=== PATIENT | male | born 1945 | race Caucasian/White ===

== ENCOUNTER 2018-03-21 07:03 | Outpatient (CLI) | payer MEDICARE, OTHER ==
[2018-03-21] MEDS ORDERED: ISOVUE-370 76%-LOCM 1 ML ONE (14:48)
== END 2018-03-21 07:04 | disposition home or self-care (01) ==
LOC: BICCT 07:03
PROVIDERS: ATTEND Otolaryngology Otolaryngic Allergy
DX: R22.1 Localized swelling, mass and lump, neck (principal); J38.01 Paralysis of vocal cords and larynx, unilateral; C96.9 Malignant neoplasm of lymphoid, hematopoietic and related tissue, unspecified; C79.89 Secondary malignant neoplasm of other specified sites; E04.2 Nontoxic multinodular goiter; E27.9 Disorder of adrenal gland, unspecified
CPT/HCPCS: 70491; 71260; 82565

== ENCOUNTER 2019-02-19 00:53 | Inpatient (IN) | payer MEDICARE, OTHER ==
[2019-02-19 02:00] LABS: ALT (SGPT) 23 U/L (8-55); AST (SGOT) 24 U/L (5-34); Albumin 3.5 g/dL (3.4-4.8); Alkaline Phosphatase 81 U/L (40-150); Anion Gap 16 mmol/L (10-20); BUN (Urea Nitrogen) 56 mg/dL (8.4-25.7); Bilirubin, Total 0.3 mg/dL (0.2-1.2); Calc. Creatinine Clearance 0 mL/min (70-130); Calcium 7.4 mg/dL (7.8-10.44); Carbon Dioxide 19 mmol/L (23-31); Chloride 108 mmol/L (98-107); Estimated GFR-MDRD 25; Globulin 2.5 g/dL (2.4-3.5); Glucose 304 mg/dL (83-110); Potassium 3.6 mmol/L (3.5-5.1); Sodium 139 mmol/L (136-145)
[2019-02-19 02:11] LABS: CKMB 3.2 ng/mL (0-6.6)
[2019-02-19 02:28] LABS: Bilirubin Negative (Negative); Blood, Urine Large (Negative); Clarity CLOUDY (Clear); Glucose, Urine (Dipstick) Negative (Negative); Leukocyte Moderate (Negative); Nitrite Positive (Negative); Protein, Urine (Dipstick) 30 mg/dL (Neg-Trace); Specific Gravity, Urine 1.018 (1.002-1.036); Urobilinogen 0.2 mg/dL (0.2-1.0)
[2019-02-19 02:29] LABS: Band 18 % (5-11); Hemoglobin 9.3 g/dL (14.0-18.0); Lymphocytes 3 % (21-51); MDiff Complete? YES; Mean Corpuscular HGB CONC 32.5 g/dL (32.0-36.0); Mean Corpuscular Hemoglobin 28.2 pg (27.0-31.0); Mean Corpuscular Volume 86.7 fL (78.0-98.0); Mean Platelet Volume 7.3 fL (7.4-10.4); Monocytes 7 % (0-10); Neutrophil 72 % (42-75); Platelet Count 198 thou/uL (130-400); RBC Distribution Width 14.1 % (11.5-14.5); White Blood Cell (WBC) Count 18.9 thou/uL (4.8-10.8)
[2019-02-19 02:30] LABS: Bacteria/HPF 4+ HPF (None Seen); Hyaline Casts/LPF 0-3 HYALINE CAST LPF (0-3 Hyaline); RBC/HPF 21-50 HPF (0-3); Squamous Epithelial None Seen HPF (0-3)
[2019-02-19] MEDS ORDERED: cefTRIAXone\\ROCEPHIN 2 GM VIAL ONE (03:07)
[2019-02-19 05:30] LABS: Troponin I 0.323 ng/mL (< 0.028)
--- NOTE | 2019-02-19 07:31 | RAD ---
EXAM: Single view of the chest HISTORY: Fever COMPARISON: 07/21/2010 FINDINGS: Single view of the chest shows an enlarged but stable cardiomediastinal silhouette. Athero sclerotic calcifications are seen in the aorta. There is no evidence of consolidation, mass, or pleural effusion. Degenerative changes are seen in the spine. IMPRESSION: Cardiomegaly without evidence of acute cardiopulmonary disease
--- NOTE | 2019-02-19 07:38 | CT ---
PRELIMINARY REPORT/[facility]/EMERGENCY AFTER HOURS PROCEDURE: EXAM: CT Abdomen and Pelvis Without Contrast EXAM DATE/TIME: 02/19/2019 1:47 AM CLINICAL HISTORY: 73 years old, male; Patient HX: 73 yo m presents to ED with C/O fever. reports PT has had an int ermittent fever measured at 100.1 over the past few days, with associated SOB, chills, nausea, and vomiting that started tonight. also reports PT has been fatigued for the past week. reports PT currently has thyroid cancer and is on chemotherapy. PT denies diarrhea, denies dysuria, denies cough. PT reports his blood sugar was measured at 265. TECHNIQUE: Imaging protocol: Axial computed tomography images of the abdomen and pelvis without contrast. COMPARISON: No relevant prior studies available. FINDINGS: Lungs: There is subpleural atelectasis of the dependent portions of the lungs. Liver: There is a focal right liver lobe hypodensity that cannot be further characterized on the curr ent examination. Gallbladder and bile ducts: There has been a cholecystectomy. Pancreas: The pancreas appears normal. No ductal dilatation. Spleen: The spleen is normal. Adrenals: There is a focal hypodense mass in the right adrenal gland, consistent in appearance with a benign adrenal adenoma. There is a focal hypodense mass in the left adrenal gland, consistent in appearance and density with a benign adrenal adenoma. Kidneys and ureters: There is an indeterminate exophytic RIGHT renal cyst. There are multiple simple left renal cysts. There is a 4 x 3 x 3 mm calcification at the RIGHT UVJ with no RIGHT hydroureteronephrosis. Stomach and bowel: The stomach is normal. There is moderate colonic constipation. Moderate diverticul osis is present in the sigmoid and descending colon. Appendix: A normal appendix is identified. Intraperitoneal space: Normal. No free air. No significant fluid collection. Vasculature: There is a spontaneous splenorenal shunt. An inferior vena cava filter lies in appropriate position. The vasculature demonstrates diffuse moderate atherosclerotic calcification. Lymph nodes: Normal. No enlarged lymph nodes. Bladder: The bladder is decompressed but otherwise normal. Reproductive: The prostate gland demonstrates mild nonspecific enlargement. The seminal vesicles are normal. Bones/joints: There is multilevel lumbar spine surgical fixation with transpedicular screws, stabilization rods, disc spacers and spinous process plates. Soft tissues: Unremarkable. IMPRESSION: There is a 4 x 3 x 3 mm calcification at the RIGHT UVJ with no RIGHT hydroureteronephrosis. Thank you for allowing us to participate in the care of your patient. Dictated and Authenticated by: Josesito Burks MD 02/19/2019 3:15 AM Central Time ([place] & [place]) FINAL REPORT: EXAM: ABDOMEN AND PELVIC CT SCAN WITH IV CONTRAST: Emergency after exam 1:48 AM 02/19/2019. Multiple bilateral nonobstructing renal calculi with a nonobstructing distal right ureteral calculus. Numerous other findings as above. Bilateral adrenal nodules. Bilateral renal indeterminate masses. Extensive postop changes of the lower lumbar spine. Bilateral fat-containing hernias. Multi ple colonic diverticulosis without diverticulitis. This report is in agreement with a preliminary report. Transcribed Date/Time: 02/19/2019 9:25 AM
[2019-02-19 07:44] LABS: Troponin I 0.238 ng/mL (< 0.028)
[2019-02-19] MEDS ORDERED: Acetaminophen 325 MG TAB PO PRN (09:06)
[2019-02-19] MEDS ORDERED: Senokot S 8.6-50 MG TAB PO PRN (09:06)
[2019-02-19] MEDS ORDERED: Dextrose 5% in Water 1,000 ML IV PRN (09:51)
[2019-02-19] MEDS ORDERED: Dextrose 50% Abboject 50 ML SYRINGE SLOW IVP PRN (09:51)
[2019-02-19] MEDS ORDERED: HumaLOG 300 UNITS/3 ML VIAL SC PRN (09:51)
[2019-02-19] MEDS ORDERED: cloNIDine 0.1 MG TAB PO PRN (09:53)
[2019-02-19] MEDS ORDERED: Nitroglycerin 0.4 MG TAB (25 Tab Bottle) SL PRN (09:53)
[2019-02-19] MEDS ORDERED: Benzonatate 100 MG CAP PO PRN (09:53)
[2019-02-19] MEDS ORDERED: Bisacodyl 5 MG TAB PO PRN (09:53)
[2019-02-19] MEDS ORDERED: Sodium Chloride 0.65% Nasal 44 ML BOT EA NARE PRN (09:53)
[2019-02-19] MEDS ORDERED: hydrALAZINE 20 MG/ML VIAL SLOW IVP PRN (09:53)
[2019-02-19] MEDS ORDERED: Ondansetron PF 4 MG/2 ML Vial IVP PRN (09:53)
--- NOTE | 2019-02-19 10:30 | CON ---
DATE OF CONSULTATION: 02/19/2019 HISTORY OF PRESENT ILLNESS: This is a 73-year-old white male, who I have seen for since 2007 with recurrent bilateral urinary tract stones. I last saw him towards the end of December. At that time, he had pain for 2 weeks on the left side, and actually, had a CT done in [place], it showed some left hydronephrosis, also showed some right stones. He is to see me in a couple of days with a noncontrast CT. A urine culture at that point of late December was negative. He comes in now with a 4-day history of subjective fever, chills, worse yesterday with shakes and rigors, not feeling well, got weak yesterday, could walk. No burning. No flank pain. Did throw up last night, but otherwise was not having nausea or vomiting. He came into the emergency room, he had a urinalysis that was consistent with infection, it showed 21 to 50 red cells, greater than 50 white cells, 4+ bacteria. His creatinine was 2.56, and I am not sure what his baseline is. White count was 18.9. His hemoglobin was 9.3. He is on oral chemotherapeutic agent for thyroid cancer. He sees an oncologist at [facility]. He did have a CAT scan done that showed some bilateral cysts and bilateral stones and a very small right distal ureterovesical junction stone without any associated hydronephrosis. His vital signs have been stable here. He is receiving IV fluids. He has been n.p.o. PAST MEDICAL HISTORY: Includes stones, history of elevated cholesterol, history of diverticulitis. He has had knee surgery, ESWLs, and a cholecystectomy. He also has diabetes. ALLERGIES: HE DOES NOT HAVE ANY. MEDICATIONS: He has received vancomycin and piperacillin and tazobactam in the emergency center. He is being given some insulin in the emergency center. He has been admitted by the hospitalist system. I have reviewed his CAT scan. I have contacted the ER. I have talked with the patient, and we are going to set him up for emergent cystoscopy and stent placement because of infection associated with the ureteral stone and his elevated creatinine. Job ID: [id number]
[2019-02-19] MEDS ORDERED: PROPOFOL 200 MG/20 ML VIAL ONE (10:53)
[2019-02-19] MEDS ORDERED: Succinylcholine Chloride 20 MG/ML 10 ml SYRINGE FS ONE (10:53)
[2019-02-19] MEDS ORDERED: Lidocaine 1% PF 5 ML VIAL ONE (10:53)
[2019-02-19] MEDS ORDERED: Ondansetron PF 4 MG/2 ML Vial ONE (10:53)
[2019-02-19] MEDS ORDERED: ePHEDrine 50 MG/ML VIAL ONE (10:53)
[2019-02-19] MEDS ORDERED: PHENYLEPHRINE-NS 100 MCG/ML 10 ML SYRINGE ONE (10:53)
[2019-02-19] MEDS ORDERED: Fentanyl 100 MCG/2 ML VIAL ONE (11:11)
[2019-02-19] MEDS ORDERED: Iothalamate Meglumine 60% 50 ML VIAL FS ONE (11:14)
--- NOTE | 2019-02-19 11:31 | HP ---
PRIMARY CARE PHYSICIAN: Dr. Stephanie Stevens, in [place], [place]. PRIMARY UROLOGIST: Dr. Mccormick. PRIMARY ONCOLOGIST: [facility]. CHIEF COMPLAINT: Fever, chills, nausea, weakness, and confusion. HISTORY OF PRESENT ILLNESS: Mr. Donovan is a pleasant 73-year-old male with past medical history of thyroid cancer, status post surgery in August 2018, on chemotherapy medications, as well as history of diabetes, dyslipidemia, hypertension, and renal stones, who presented to the emergency room with above-mentioned complaints. History is mainly obtained by the patient himself and supplemented by his present at the bedside. Electronic medical records have been reviewed. According to Mr. Donovan, he has been feeling fairly well up until 2 or 3 days ago. He started to have low-grade fever 3 days ago on a daily basis in the evening. Tylenol helped the fever most of the days except for yesterday, when his low-grade fever did not go away. He feels more and more weak and had nausea associated with urinary urgency. He had generalized weakness, malaise, and became confused last evening. He has also been having poor appetite. Fever and chills were not associated with any diarrhea, vomiting, or abdominal pain. He denied any chest pain, shortness of breath, orthopnea, or PND. He denies any blood in his urine or stools. He denies any sick contacts. In regulation to his thyroid cancer: He reports that he takes 2 oral chemotherapy medications and Synthroid. He follows up at [facility] and had a PET scan in September, which showed that he is in remission. Upon presentation to the ER, his blood pressure was 109/62, pulse of 104, and temperature of 98.2. His initial workup included a CT scan of abdomen and pelvis, which showed right UVJ calculus without any hydroureteronephrosis. His blood work showed acute renal insufficiency with a creatinine of 2.56, and he had leukocytosis with WBCs of 18.9 with 18% bands. He also had elevated troponin at 0.286, which went up to 0.32, and then trended down to 0.238. His urinalysis had multiple bacteria, rbc, leukocyte esterase, nitrite, and wbc's. ER COURSE: He was treated with normal saline, Rocephin, and vancomycin in the ER, and Urology was consulted. Dr. Mccormick was consulted and he recommended keeping him n.p.o. for a possible ureteral stent versus stone retrieval. At the time of my evaluation, the patient is in Day Stay, awaiting procedure by Dr. Sol, who is covering for Dr. Mccormick. PAST MEDICAL HISTORY: 1. Thyroid cancer, status post surgery, on oral chemotherapy medication. 2. Diabetes mellitus type 2. 3. Prostate enlargement. 4. Dyslipidemia. 5. History of diverticulitis. 6. TIA in August 2018. 7. Kidney stones in the past. PAST SURGICAL HISTORY: 1. Thyroid tumor removal on the left neck and lymph node removal. 2. Left knee replacement. 3. Back surgery with screws. 4. Bilateral cataract surgery. 5. Left hand surgery. 6. Bilateral elbow surgery. PSYCHIATRIC HISTORY: No anxiety. No depression. SOCIAL HISTORY: He is and lives with his . No history of drug, tobacco, or alcohol abuse. FAMILY HISTORY: He denies any family history of cancers, diabetes, hypertension, coronary artery disease, or stroke. ALLERGIES: INCLUDE ADHESIVE TAPE. HOME MEDICATIONS: As listed in the ER records; 1. Aspirin 325 mg daily. 2. Synthroid 200 mcg daily. 3. Tamsulosin 0.4 mg b.i.d. 4. Lipitor 40 mg daily. 5. Potassium chloride 10 mEq daily. 6. Aldactone 25 mg daily. 7. Famotidine 20 mg daily. 8. Humalog sliding scale. 9. Sertraline 50 mg daily. 10. Lorazepam 0.5 mg b.i.d. 11. Fentanyl patch 100 mcg every 72 hours. CODE STATUS: Full code discussed with the patient and in detail. REVIEW OF SYSTEMS: A 14-point review of systems is done and is negative except for those mentioned in the history and physical. LABORATORY DATA: CBC shows WBCs 18.9 with 18% bands. Hemoglobin is 9.3 with baseline unknown. It is normochromic normocytic in nature. Serum chemistries show bicarb 19, BUN 56, and creatinine 2.56 with GFR estimated at 25. Lactic acid is normal. Troponin 0.286, then repeat troponin 0.323, then 0.238. Urinalysis as per HPI suggest UTI. Chest x-ray by my review has no evidence to suggest pleural effusion, edema, or infiltrate. CT scan of the abdomen and pelvis done in the emergency room without contrast shows 4 x 3 x 3 mm calcification of the right UVJ with no right hydroureteronephrosis. No other acute changes were noticed. A 12-lead EKG by my review shows normal sinus rhythm without any acute ST or T-wave changes. PHYSICAL EXAMINATION: VITAL SIGNS: Upon presentation, blood pressure 109/62, pulse of 104, respirations 18, saturating 95% on room air, and temperature 98.2. GENERAL: He is seen and examined in Day Stay. He is feeling better and is awake, alert, and oriented x3, appears in good spirit and is in no acute distress. HEENT: Mucous membrane is slightly dry. No oropharyngeal exudate or erythema. Head is normocephalic and atraumatic. Pupils are equal and reactive to light and accommodation. Extraocular movement intact. NECK: Supple without any lymphadenopathy, JVD, or bruit. CHEST: Clear to auscultation without any wheezing, rales, or rhonchi. HEART: Rate and rhythm are regular without any murmurs, rubs, or gallops. ABDOMEN: Soft, nontender, and nondistended. Positive bowel sounds. EXTREMITIES: Free of any cyanosis, clubbing, or edema. NEUROLOGICAL: Nonfocal. SKIN: Free of any rashes or bruises. Feels warm and dry to touch. PSYCHIATRIC: Normal affect. IMPRESSION AND PLAN: 1. Sepsis. This was most likely secondary to urinary tract infection, which in turn is due to nephrolithiasis and history of benign prostatic hyperplasia. Because of the immunocompromised status, we will put him on broad spectrum IV antibiotics and consult Infectious Disease, Dr. Cruz, as well. He will be treated with normal saline, IV Zosyn, and IV vancomycin. Blood and urine cultures have been collected and we will follow the results. He is clinically already feeling much better. He will be admitted to telemetry unit. 2. Urinary tract infection. Once again, continue empiric antibiotic and follow the final results of the urine culture. We will avoid any Cunningham catheterization. This is most likely secondary to nephrolithiasis. He is undergoing an emergent cystoscopy with hopefully either stone removal or stent placement by Urology. We appreciate the input. 3. Acute renal insufficiency. This is secondary to #1 and #2 as well as due to nephrolithiasis. Emergent cystoscopy with stone removal has been underway. We will avoid any nephrotoxic medications and start him on normal saline and monitor his kidney function on a daily basis. It is unclear if he has any history of chronic kidney disease, but he denies that. 4. Type 2 myocardial infarction. He has elevated troponin, most likely secondary to ongoing sepsis. It has already started to trend down. We will repeat it in few hours. We will obtain a transthoracic echocardiogram to rule out inherent cardiac issues and also to rule out any cardiac infection such as endocarditis in the phase of sepsis. 5. Nephrolithiasis as #1, #2, and #3. He is to undergo emergent procedure by Urology for the same. At this time, there is no hydroureteronephrosis. 6. Uncontrolled diabetes mellitus. We will start him on insulin sliding scale and carb controlled diet. We will restart his home medications once he is cleared to take oral medications. 7. Hypertension, currently on the lower side. Hold his antihypertensives and use p.r.n. only. Restart medications as his blood pressure tolerates. 8. Dyslipidemia. We will restart his home medications once he is cleared to take oral medications. 9. History of thyroid cancer, status post removal. We will restart his oral chemotherapeutic medications while in the hospital. He will continue to follow up with his oncologist at [facility]. She is on vacation today, but we will give her a call tomorrow. I have encouraged the patient's to leave a message with oncologist nurse today. 10. Deep venous thrombosis and gastrointestinal prophylaxis and symptomatic and supportive care. 11. Code status, full code discussed with the patient and his . 12. Generalized weakness, this is secondary to sepsis. We will have OT/PT evaluated the patient. He most likely will benefit from home health on discharge. DISPOSITION: Mr. Donovan is currently being admitted to the hospital with sepsis secondary to urinary tract infection, nephrolithiasis, and renal failure. Estimated length of stay at this time is at least 3 to 4 midnights. Further management will depend upon his clinical course. Job ID: [id number]
[2019-02-19] MEDS ORDERED: Ondansetron HCl/PF 4 MG/2 ML Vial IVP PRN (11:44)
[2019-02-19] MEDS ORDERED: PACU-Morphine 4MG/ML VIAL SLOW IVP PRN (11:44)
[2019-02-19] MEDS ORDERED: Meperidine HCl/PF 25 MG/ML VIAL SLOW IVP PRN (11:44)
[2019-02-19] MEDS ORDERED: HYDROmorphone 2 MG/ML VIAL SLOW IVP PRN (11:44)
[2019-02-19] MEDS ORDERED: Promethazine HCl 25 MG/ML VIAL SLOW IVP PRN (11:44)
[2019-02-19] MEDS ORDERED: Promethazine HCl 25 MG/ML VIAL IM PRN (11:44)
[2019-02-19] MEDS ORDERED: Morphine Sulfate 2 MG/ML SYRINGE SLOW IVP PRN (11:44)
--- NOTE | 2019-02-19 12:13 | RAD ---
EXAM: XR IVP Retrograde PROVIDED CLINICAL HISTORY: Ureteral calculus. Stent placement. COMPARISON: CT abdomen and pelvis on 02/19/2019. FINDINGS/IMPRESSION: Credit And Collections Analyst image demonstrates extensive postsurgical changes of the lumbar spine and lumbosacral junction. There is a neural stimulator device overlying the lumbar spine and left mid abdomen. IVC filter is partially imaged. Subsequent imaging demonstrates catheter and guidewire within the right ureter with injection of contrast demonstrating no evidence of hydronephrosis or definite persistent filling defect within the right renal collecting system. Final image demonstrates a double pigtail right uret eral stent in place. Correlation with intraoperative findings is recommended.
--- NOTE | 2019-02-19 15:36 | OP ---
DATE OF PROCEDURE: 02/19/2019 PREOPERATIVE DIAGNOSES: Right ureterovesical stone and sepsis. POSTOPERATIVE DIAGNOSIS: Right ureterovesical stone and sepsis plus bladder stone. PROCEDURE PERFORMED: Cystoscopy, right retrograde, right stent, and removal of bladder stone. SPECIMENS REMOVED: Bladder stones. ESTIMATED BLOOD LOSS: Minimal. DRAINS: 6 x 22 double-J stent up the right ureter. FINDINGS: There was still left distal ureteral obstruction, could not see the stone on a career development manager film, but could not get a guidewire across it, used the angled tip Glidewire. He had minimal hydronephrosis, however. His urine was cloudy in the bladder. The urine draining from the upper collecting system on the right side was also cloudy. There was no primo pus. OPERATIVE INDICATIONS: This is a 73-year-old white male, who has had a 4-day history of fevers and chills. No significant pain, but started to get confused last night and his brought him in because of this, he was found to have infected appearing urine. CT with a right distal ureteral stone, not much of hydro and elevated white count. He is coming now for placement of a stent because of the association of the infection and sepsis with ureteral stone. DESCRIPTION OF PROCEDURE: Obtained written and verbal consent from the patient. He was taken to the operating suite. He was placed in a supine position on the treatment table. PlexiPulses were placed on his lower extremities and turned on. He was given a general anesthetic and oral intubation. He was placed in the dorsal lithotomy position, sterilely prepped and draped. Fluoroscopy was placed over him for imaging. Cystoscopy was done with a 22-Divehi sheath. This was well lubricated, passed under direct vision through the male urethra and into the urinary bladder. The bladder was filled and emptied a number of times, it was very cloudy. We identified a bladder stone that was grasped with a grasping forceps. It was a very soft stone. It was crushed, and the larger pieces were taken out. There was one remaining piece that he would probably able to urinate out. The stone was probably 0.5 cm in size. We located the right ureteral orifice and a guidewire would not go up, so we brought in a [place] catheter and we placed an angle-tipped Glidewire, through that we were able to get this by the right ureter to go up the renal pelvis. The Springfield catheter then followed up. We injected about 8 to 10 mL of contrast to fill the collecting system. The ureter did not appear dilated at all, although it was slightly tortuous. Upper collecting system was at most possibly slightly dilated, so there was not a significant amount of hydronephrosis at all. The guidewire was replaced. The open-ended catheter was removed. His ureter was not very long, so we were able to use a 6 x 22 Polaris double-J stent, which was placed over the guidewire, pushed up in place with the pusher to its proximal end coiled in the renal pelvis when the guidewire was removed. Stent appeared to be draining well at the end of the case. The bladder was drained. The instruments were removed. He was taken out of the dorsal lithotomy position, awakened and extubated, taken by lillieer to recovery room. Job ID: [id number]
[2019-02-19 17:16] LABS: CKMB 4.9 ng/mL (0-6.6)
[2019-02-19] MEDS ORDERED: Piperacillin/Tazobactam 3.375 GM VIAL ONE (17:30)
[2019-02-19] MEDS ORDERED: Sodium Chloride 0.9% 100 ML ONE (17:30)
[2019-02-19] MEDS: Sodium Chloride 0.9% 1,000 ML IV SCH ×2 (20:26→21:40)
[2019-02-19] MEDS: Heparin 5,000 UNITS/ML VIAL SC SCH ×2 (20:26→21:42)
[2019-02-19] MEDS: Piperacillin/Tazobactam 3.375 GM in Sodium Chloride 0.9% 100 ML IVPB SCH (20:26)
[2019-02-19] MEDS: Famotidine/PF 20 mg/2ml Vial SLOW IVP SCH ×2 (20:27→21:41)
[2019-02-20] MEDS: Piperacillin/Tazobactam 3.375 GM in Sodium Chloride 0.9% 100 ML IVPB SCH ×4 (00:27→17:57)
[2019-02-20 02:10] VITALS: BMI 36.6
[2019-02-20 05:29] LABS: #Eosinphils 0.2 thou/uL (0.0-0.7); #Monocytes 0.8 thou/uL (0.11-0.59); #Neutrophils 11.9 thou/uL (1.40-6.50); %Basophils 0.1 % (0.0-1.0); %Eosinophils 1.7 % (0.0-10.0); %Lymphocytes 7.2 % (21.0-51.0); %Monocytes 5.4 % (0.0-10.0); %Neutrophils 85.7 % (42.0-75.0); Hemoglobin 8.3 g/dL (14.0-18.0); Mean Corpuscular HGB CONC 32.4 g/dL (32.0-36.0); Mean Corpuscular Hemoglobin 28.4 pg (27.0-31.0); Mean Corpuscular Volume 87.5 fL (78.0-98.0); Mean Platelet Volume 7.3 fL (7.4-10.4); Platelet Count 181 thou/uL (130-400); RBC Distribution Width 14.3 % (11.5-14.5); Red Blood Cell (RBC) Count 2.92 mill/uL (4.70-6.10); White Blood Cell (WBC) Count 13.9 thou/uL (4.8-10.8)
[2019-02-20 05:52] LABS: Anion Gap 12 mmol/L (10-20); BUN (Urea Nitrogen) 42 mg/dL (8.4-25.7); Calc. Creatinine Clearance 49 mL/min (70-130); Calcium 6.9 mg/dL (7.8-10.44); Carbon Dioxide 19 mmol/L (23-31); Chloride 115 mmol/L (98-107); Estimated GFR-MDRD 30; Glucose 138 mg/dL (83-110); Potassium 3.6 mmol/L (3.5-5.1); Sodium 142 mmol/L (136-145)
--- NOTE | 2019-02-20 08:10 | PDOC.PN ---
- Subjective Encounter Start Date: 02/20/19 Encounter Start Time: 07:45 Mr. Donovan is a pleasant 73 year old man with a history of Thyroid Cancer for which he is currently taking - Objective Resuscitation Status - Order Detail: 02/19/19 09:06 Resuscitation Status Routine Resuscitation Status: FULL: Full Resuscitation Vital Signs & Weight: Vital Signs (12 hours) Temp Pulse Resp BP Pulse Ox 02/20/19 07:58 98.2 F 80 20 126/60 95 02/20/19 04:00 97.4 F L 77 16 107/61 94 L 02/20/19 00:00 99 F 74 16 99/47 L 93 L 02/19/19 22:03 80 18 94 L Weight Weight 112.582 kg I&O: 02/19/19 02/20/19 02/21/19 06:59 06:59 06:59 Intake Total 450 Output Total 1050 Balance -600 Result Diagrams: 02/20/19 04:58 02/20/19 04:58 Additional Labs: Accuchecks 02/20/19 02/19/19 06:47 12:31 POC Glucose 129 H 121 H Dx/Plan - Plan * .
--- NOTE | 2019-02-20 08:31 | PDOC.PN ---
- Subjective Encounter Start Date: 02/20/19 Encounter Start Time: 07:45 Mr. Donovan is a pleasant 73 year-old male with a history of Thyroid cancer ( currently taking oral chemotherapy 2x a day at home) and DMT2 who presented in the ER yesterday due a 4 day history of fever, chills, and an episode of confusion and generalized weakness. He underwent right stent placement with urology yesterday. Patient is feeling okay today. He mentions being sore from surgery but experiences sharp, intense pain with urination that he rates 10/10. This pain was present yesterday post-op and is of the same intensity this morning. He states he is urinating about every 10-15 minutes. Has some constipation today but has been able to pass gas. Patient denies chest pain, dyspnea, fevers, and chills and has not had a bowel movement since surgery. - Objective Resuscitation Status - Order Detail: 02/19/19 09:06 Resuscitation Status Routine Resuscitation Status: FULL: Full Resuscitation Vital Signs & Weight: Vital Signs (12 hours) Temp Pulse Resp BP Pulse Ox 02/20/19 07:58 98.2 F 80 20 126/60 95 02/20/19 04:00 97.4 F L 77 16 107/61 94 L 02/20/19 00:00 99 F 74 16 99/47 L 93 L 02/19/19 22:03 80 18 94 L Weight Weight 112.582 kg I&O: 02/19/19 02/20/19 02/21/19 06:59 06:59 06:59 Intake Total 450 Output Total 1050 Balance -600 Result Diagrams: 02/20/19 04:58 02/20/19 04:58 Additional Labs: Accuchecks 02/20/19 02/19/19 06:47 12:31 POC Glucose 129 H 121 H Phys Exam - Physical Examination HEENT: PERRLA, moist MMs Neck: supple Respiratory: no wheezing, clear to auscultation bilateral Cardiovascular: RRR, no significant murmur Gastrointestinal: soft, non-tender (No suprapubic or flank pain. ) Musculoskeletal: pulses present (Radial and pedal pulses 2+ bilaterally. Mild edema LE 1+ bilaterally. ) Neurological: moves all 4 limbs Psychiatric: A&O x 3 Skin: no rash, cap refill <2 seconds Dx/Plan (1) Type 2 diabetes mellitus Status: Acute Comment: Continue managment with Insulin. (2) Nephrolithiasis Status: Acute Comment: Patient is post-op right stent placement. Continue hydration. Manage pain with urination - Tylenol available. (3) Urinary tract infection Status: Acute Comment: Secondary to obstructing neprholithiasis. Continue antibiotics. (4) Sepsis Code(s): A41.9 - SEPSIS, UNSPECIFIED ORGANISM Status: Acute Comment: Secondary to UTI and obstructing nephrolithiasis. See above. - Plan cont current plan of care * Pain management as needed - Tylenol available * Constipation - Zofran available
[2019-02-20] MEDS: Heparin 5,000 UNITS/ML VIAL SC SCH ×3 (08:46→21:30)
[2019-02-20] MEDS ORDERED: Vancomycin HCl 1 GM in Premix Bag 1 BAG IVPB SCH (09:00)
[2019-02-20] MEDS ORDERED: Lorazepam 0.5 MG TAB PO PRN (09:07)
[2019-02-20] MEDS ORDERED: HYDROMORPHONE 1 MG/ML PO PRN (09:07)
[2019-02-20] MEDS ORDERED: Polyethylene Glycol 3350 17 GM Packet PO PRN (09:07)
--- NOTE | 2019-02-20 09:13 | PDOC.PN ---
- Subjective Encounter Start Date: 02/20/19 Encounter Start Time: 11:10 Subjective: Patient having signficant dysuria at urethra with urination. No other -: symptoms. Able to urinate easily. No hematuria. No fever. No chills. - Objective Resuscitation Status - Order Detail: 02/19/19 09:06 Resuscitation Status Routine Resuscitation Status: FULL: Full Resuscitation MAR Reviewed: Yes Vital Signs & Weight: Vital Signs (12 hours) Temp Pulse Resp BP Pulse Ox 02/20/19 07:58 98.2 F 80 20 126/60 95 02/20/19 04:00 97.4 F L 77 16 107/61 94 L 02/20/19 00:00 99 F 74 16 99/47 L 93 L 02/19/19 22:03 80 18 94 L Weight Weight 248 lb 3.2 oz I&O: 02/19/19 02/20/19 02/21/19 06:59 06:59 06:59 Intake Total 450 Output Total 1050 Balance -600 Result Diagrams: 02/20/19 04:58 02/20/19 04:58 Additional Labs: Accuchecks 02/20/19 02/19/19 06:47 12:31 POC Glucose 129 H 121 H Phys Exam - Physical Examination Constitutional: NAD HEENT: moist MMs Respiratory: no wheezing, no rales, no rhonchi Cardiovascular: RRR, no significant murmur Gastrointestinal: soft, non-tender, no distention, positive bowel sounds Neurological: non-focal Psychiatric: normal affect, A&O x 3 Dx/Plan (1) Sepsis Code(s): A41.9 - SEPSIS, UNSPECIFIED ORGANISM Status: Acute Comment: Secondary to UTI and obstructing nephrolithiasis. (2) Nephrolithiasis Status: Acute Comment: Patient is post-op right stent placement. Continue hydration. Manage pain with urination - Tylenol available. (3) Type 2 diabetes mellitus Status: Chronic Comment: Resume home insulin (4) Urinary tract infection Status: Acute Comment: Complicated by nephrolithiasis, on Zosyn since 02/19/19 (5) Bacteremia Code(s): R78.81 - BACTEREMIA Status: Acute Comment: E. coli, sensitivities pending, Vanc d/c'd, on Zosyn (6) Thyroid cancer Status: Chronic Comment: s/p resection, on chemotherapy (7) Acute renal failure Status: Acute Comment: unknown baseline, holding spironolactone - Plan cont current plan of care, continue antibiotics, DVT proph w/heparin, DVT proph w/SCDs * . - Discharge Day Encounter end time: 11:25
[2019-02-20] MEDS ORDERED: Tamsulosin HCl 0.4 MG CAP PO SCH (10:15)
[2019-02-20] MEDS ORDERED: Potassium Chloride 10 MEQ TAB PO SCH (10:15)
[2019-02-20] MEDS ORDERED: Levothyroxine Sodium 100 MCG TAB PO SCH (10:30)
[2019-02-20] MEDS: Sodium Chloride 0.9% 1,000 ML IV SCH (10:41)
[2019-02-20] MEDS: Aspirin 325 MG TAB PO SCH (10:43)
[2019-02-20] MEDS: Atorvastatin Calcium 40 MG TAB PO SCH (10:44)
[2019-02-20] MEDS: Docusate Sodium 100 MG/10 ML UDCUP PO SCH (10:51)
[2019-02-20] MEDS: HumaLOG 300 UNITS/3 ML VIAL SC PRN ×2 (12:14→17:57)
--- NOTE | 2019-02-20 12:42 | PRG ---
DATE OF SERVICE: 02/20/2019 SUBJECTIVE: I am seeing this patient in room 219 at [facility] today. He is one day out from having right stent placed and removal of bladder stone. This was done for urinary tract infection and a right ureteral stone. His main complaint is just some burning with urination currently. His vital signs have been fine. He has not had significant temperature elevation since the procedures. His max is 99.0. His blood pressure has been good up in the 110 to 120 range for the most part. His O2 saturations are good. He is not tachycardic. Appears to be urinating fine. He has had over 1 L of urine output. He is currently still on Zosyn. His white count has come down from 18.9 to 13.9 and his hemoglobin is 8.3. His creatinine is 2.1. I think it was 2.5 when he came in, so it is improving some. His blood cultures are coming back with an E coli. The sensitivities are pending. His urine culture is still pending. He seems to be feeling better and thinking more clearly than he was yesterday and the main complaint again is just burning with urination. I am going to go ahead at this point and had some Pyridium to help with the burning. We will need to await the results of the urine and blood cultures to see what oral antibiotic he can go home on in the next couple of days. Stent will need to stay in until the stone is passed, we can treat it. I am going to continue to follow while he is in the hospital. Job ID: [id number]
[2019-02-20] MEDS: [UNRECOGNIZED DRUG - OTHER] PO SCH ×2 (15:01→21:31)
--- NOTE | 2019-02-20 19:20 | CON ---
DATE OF CONSULTATION: 02/20/2019 REASON FOR CONSULTATION: Urosepsis with obstruction. HISTORY OF PRESENT ILLNESS: A 73-year-old with history of nephrolithiasis with prior episodes of lithotripsy in the past as well as thyroid cancer in remission and type 2 diabetes, who developed fever, chills, and confusional state, was brought into the emergency room. The symptoms developed about 3 days before admission. On arrival, his BP was 109/62, pulse 104, respirations 18, O2 saturation 95%, and temperature 98.2. He appeared oriented. Lungs are clear. Heart exam was normal. Abdomen, soft and not tender or distended. The patient had a CT abdomen and pelvis, which was stone protocol study and it showed a 4 x 3 x 3 mm calcification right UVJ, but no mild hydroureteronephrosis. White cell count is 18,000 with hemoglobin 9.3 with 18% bands. Creatinine is 2.14. Urinalysis was greater than 50 wbc's. The patient has been started on Zosyn. He is currently feeling better. Denies any headaches. No visual symptoms, sore throat, odynophagia, or dysphagia. No back pain. No abdominal pain. He is voiding in the toilet. PAST MEDICAL HISTORY: Nephrolithiasis, type 2 diabetes, thyroid cancer in remission, BPH, diverticulitis, and TIA. PAST SURGICAL HISTORY: Left knee replacement, back fusion, cataract surgery, and elbow surgery. SOCIAL HISTORY: . Never smoker. FAMILY HISTORY: Noncontributory. ALLERGIES: ADHESIVE TAPE. CURRENT MEDICATIONS: 1. Aspirin. 2. Lipitor. 3. Tessalon. 4. Dulcolax. 5. Catapres. 6. Colace. 7. Pepcid. 8. Glucagon. 9. Insulin. 10. Loratadine. 11. Synthroid. 12. Zofran. 13. Zosyn. PHYSICAL EXAMINATION: VITAL SIGNS: Temperature max 98.9, blood pressure 119/66, pulse 70, respirations 16, and O2 saturation 97. SKIN: Not remarkable. Peripheral IV access. No lymphadenopathy. HEENT: Ocular movements conjugate. Sclerae white. Pupils are equal. Oral cavity moist, still few teeth in place. NECK: Supple. No jugular vein distention. LUNGS: Symmetric clear breath sounds. HEART: S1 and S2. Regular rate. No S3 or S4. ABDOMEN: Soft, not distended or tender. No ascites. No bladder distention. EXTREMITIES: No joint inflammatory activity. NEURO: Nonfocal. LABORATORY DATA: White cell count is at 13.9, hemoglobin 8.3, and platelets 181. Creatinine is down to 2.14. Microbiology with E. coli with pending susceptibility studies. ASSESSMENT AND PLAN: Type 2 diabetes, nephrolithiasis with small UVJ stone status post stenting, likely pyelonephritis with bacteremia, early obstruction. Continue Zosyn and eventually transition to an oral regimen if suitable for treating this invasive infection. Looks like he is not going to need any further intervention except for eventual removal of the stent. Should remain on antimicrobials until the stent is removed. Job ID: [id number]
[2019-02-20] MEDS: Fluticasone Propionate Nasal Spray 16 gm Bottle NASAL SCH (21:30)
[2019-02-20] MEDS: Famotidine/PF 20 mg/2ml Vial SLOW IVP SCH (21:30)
[2019-02-21] MEDS: Piperacillin/Tazobactam 3.375 GM in Sodium Chloride 0.9% 100 ML IVPB SCH ×4 (01:34→18:06)
[2019-02-21] MEDS: Sodium Chloride 0.9% 1,000 ML IV SCH ×2 (01:37→15:44)
[2019-02-21 05:22] LABS: #Eosinphils 0.3 thou/uL (0.0-0.7); #Lymphocytes 0.7 thou/uL (1.20-3.40); #Monocytes 0.6 thou/uL (0.11-0.59); #Neutrophils 11.7 thou/uL (1.40-6.50); %Basophils 0.1 % (0.0-1.0); %Eosinophils 2.4 % (0.0-10.0); %Lymphocytes 5.5 % (21.0-51.0); %Monocytes 4.8 % (0.0-10.0); %Neutrophils 87.2 % (42.0-75.0); Hemoglobin 8.7 g/dL (14.0-18.0); Mean Corpuscular HGB CONC 31.6 g/dL (32.0-36.0); Mean Corpuscular Hemoglobin 27.9 pg (27.0-31.0); Mean Corpuscular Volume 88.3 fL (78.0-98.0); Mean Platelet Volume 7.5 fL (7.4-10.4); Platelet Count 218 thou/uL (130-400); RBC Distribution Width 14.4 % (11.5-14.5); Red Blood Cell (RBC) Count 3.11 mill/uL (4.70-6.10); White Blood Cell (WBC) Count 13.4 thou/uL (4.8-10.8)
[2019-02-21 05:45] LABS: Anion Gap 13 mmol/L (10-20); BUN (Urea Nitrogen) 36 mg/dL (8.4-25.7); Calc. Creatinine Clearance 49 mL/min (70-130); Calcium 6.8 mg/dL (7.8-10.44); Carbon Dioxide 19 mmol/L (23-31); Chloride 115 mmol/L (98-107); Estimated GFR-MDRD 30; Glucose 152 mg/dL (83-110); Potassium 3.8 mmol/L (3.5-5.1); Sodium 143 mmol/L (136-145)
[2019-02-21] MEDS: Levothyroxine Sodium 100 MCG TAB PO SCH (07:09)
--- NOTE | 2019-02-21 07:35 | PDOC.PN ---
- Subjective Encounter Start Date: 02/21/19 Encounter Start Time: 10:50 Subjective: Patient with decreased burning with urination. No fever/chills. No other -: complaints. - Objective Resuscitation Status - Order Detail: 02/19/19 09:06 Resuscitation Status Routine Resuscitation Status: FULL: Full Resuscitation MAR Reviewed: Yes Vital Signs & Weight: Vital Signs (12 hours) Temp Pulse Resp BP Pulse Ox 02/21/19 04:00 97.8 F 72 16 120/61 96 02/21/19 00:00 97.5 F L 86 16 136/74 96 02/20/19 20:15 95 02/20/19 20:00 97.4 F L 81 16 121/58 L 95 Weight Weight 248 lb 3.2 oz I&O: 02/20/19 02/21/19 02/22/19 06:59 06:59 06:59 Intake Total 450 1710 Output Total 1050 800 Balance -600 910 Result Diagrams: 02/21/19 04:30 02/21/19 04:30 Additional Labs: Accuchecks 02/21/19 02/20/19 02/20/19 06:27 20:34 17:07 POC Glucose 127 H 164 H 158 H 02/20/19 10:51 POC Glucose 195 H Phys Exam - Physical Examination Constitutional: NAD HEENT: moist MMs Respiratory: no wheezing, no rales, no rhonchi Cardiovascular: RRR, no significant murmur Gastrointestinal: soft, non-tender, positive bowel sounds Musculoskeletal: no edema Neurological: non-focal, moves all 4 limbs Psychiatric: normal affect, A&O x 3 Dx/Plan (1) Sepsis Code(s): A41.9 - SEPSIS, UNSPECIFIED ORGANISM Status: Acute Comment: Secondary to UTI and obstructing nephrolithiasis. (2) Nephrolithiasis Status: Acute Comment: Patient is post-op right stent placement by Dr. Roth. Continue hydration. Manage pain with urination - Tylenol available. (3) Type 2 diabetes mellitus Status: Chronic Comment: Resume home insulin (4) Urinary tract infection Status: Acute Comment: Complicated by nephrolithiasis, on Zosyn since 02/19/19 (5) Bacteremia Code(s): R78.81 - BACTEREMIA Status: Acute Comment: E. coli, sensitive to Rocephin, Zosyn, and Bactrim, will eventually need to transition to oral antibiotics, appreciate Dr. Cruz' imput (6) Thyroid cancer Status: Chronic Comment: s/p resection, on chemotherapy (7) Acute renal failure Status: Acute Comment: unknown baseline, stable, holding spironolactone - Plan cont current plan of care, continue antibiotics, DVT proph w/heparin Likely home on 2 weeks of Bactrim tomorrow with outpatient f/u with -: Dr. Roth. * . - Discharge Day Encounter end time: 11:00
[2019-02-21] MEDS ORDERED: Loratadine/Pseudoephedrine 10/240 mg Tablet PO PRN (09:00)
[2019-02-21] MEDS ORDERED: Potassium Chloride 10 MEQ TAB PO SCH (09:00)
[2019-02-21] MEDS: [UNRECOGNIZED DRUG - OTHER] PO SCH (10:14)
[2019-02-21] MEDS: [UNRECOGNIZED DRUG - OTHER] PO SCH ×3 (10:14→22:37)
[2019-02-21] MEDS: Aspirin 325 MG TAB PO SCH (10:15)
[2019-02-21] MEDS: Atorvastatin Calcium 40 MG TAB PO SCH (10:15)
[2019-02-21] MEDS: Heparin 5,000 UNITS/ML VIAL SC SCH ×3 (10:16→22:26)
[2019-02-21] MEDS: Docusate Sodium 100 MG/10 ML UDCUP PO SCH (10:16)
[2019-02-21] MEDS: Tamsulosin HCl 0.4 MG CAP PO SCH (10:16)
[2019-02-21] MEDS: Diabetic Tussin 200 MG/10 ML UDCUP PO PRN ×2 (10:23→22:25)
[2019-02-21] MEDS: Fluticasone Propionate Nasal Spray 16 gm Bottle NASAL SCH ×2 (10:25→22:25)
[2019-02-21] MEDS: Phenazopyridine HCl 97.5 MG TABLET PO PRN ×2 (11:55→22:25)
[2019-02-21] MEDS: HumaLOG 300 UNITS/3 ML VIAL SC PRN (11:55)
--- NOTE | 2019-02-21 12:10 | PRG ---
DATE OF SERVICE: 02/21/2019 This patient has been afebrile, stable vital signs overnight. His white count returned to normal at 13.4. His blood culture showed E coli, which is resistant to ampicillin and quinolones, sensitive to cephalosporin and Bactrim. I think he could be switched over to oral Bactrim. He does have a stent and he is still having burning. We have written for some Pyridium yesterday, but he has not received it. I have discussed it with the nurse today and the nurse will get him some. He will need to have the stone treated unless he passes it. I think earliest we could treat him would probably be a week from this coming Tuesday, and then he will be on antibiotics long enough in terms of his sepsis and positive blood cultures and would still be on antibiotics at that time. I would send him out on two weeks of oral Bactrim Double Strength one p.o. b.i.d., some Pyridium 200 mg t.i.d. p.r.n. dysuria, and I have encouraged him to take probiotics as this bacteria already has some resistance and hopefully can keep him from developing multiple drug resistance in the future. He could probably go home tomorrow. Job ID: [id number]
--- NOTE | 2019-02-21 15:08 | PQF ---
CESAR MERRILL, MICHELLE REYEZ MD [id number] [facility] [place] [facility] [place] [id number] CLINICAL DOCUMENTATION IMPROVEMENT CLARIFICATION FORM: ICD-10 Updated PLEASE DO AN ADDENDUM TO THE PROGRESS NOTE WITH ANY DOCUMENTATION UPDATES OR ADDITIONS AND CARRY THROUGH TO DC SUMMARY. THANK YOU. DATE: 02/21/19 ATTN:DR. Pro KLEIN Please exercise your independent, professional judgment in responding to the clarification form. Clinical indicators are provided on the bottom of this form for your review. Please check appropriate box(s): Encephalopathy: Type: [ X ] Acute [ ] Subacute [ ] Chronic Etiology: [ ] Metabolic [ ] Toxic [ X ] Septic [ ] Other diagnosis [ ] Unable to determine In addition, please specify: Present on Admission (POA): [ X ] Yes [ ] No [ ] Unable to determine For continuity of documentation, please document condition throughout progress notes and discharge summary. Thank You. CLINICAL INDICATORS - SIGNS / SYMPTOMS / LABS 02/19 ED PHYSICIAN DX :SEPSIS, ELEVATED TROPONIN, FEVER, UTI, IMMUNOCOMPROMISED STATE 02/19 DENISE : CHIEF COMPLAINT FEVER, CHILLS, NAUSEA, WEAKNESS, AND CONFUSION; IMPRESSION AND PLAN: 1). SEPSIS 2/2 UTI WHICH IN TURN IS D/T NEPHROLITHIASIS RISK: SEPSIS 2/2 UTI ( DENISE ) H & P URETER OBSTRUCTION ( DORITA) THYROID CANCER ( ED REPORT) TREATMENTS: ID CONSULT (LION) EMERGENCY UROLOGY SX NS FLUIDS( 02/19-PRESENT) ZOSYN IV (02/19-PRESENT) THANK YOU ! JASON (This form is maintained as a part of the permanent medical record) 2014 [employer]. All Rights Reserved [email or web address] [phone] MTDD
[2019-02-21] MEDS ORDERED: Non-Formulary Item 1 EACH (Aspirin 325 MG) PO SCH (21:00)
[2019-02-21] MEDS: Famotidine/PF 20 mg/2ml Vial SLOW IVP SCH (22:25)
[2019-02-22] MEDS: Piperacillin/Tazobactam 3.375 GM in Sodium Chloride 0.9% 100 ML IVPB SCH ×2 (00:28→05:38)
[2019-02-22] MEDS: Sodium Chloride 0.9% 1,000 ML IV SCH (04:22)
[2019-02-22 05:31] LABS: #Eosinphils 0.3 thou/uL (0.0-0.7); #Lymphocytes 0.9 thou/uL (1.20-3.40); #Monocytes 0.6 thou/uL (0.11-0.59); %Eosinophils 2.4 % (0.0-10.0); %Lymphocytes 6.3 % (21.0-51.0); %Monocytes 4.3 % (0.0-10.0); %Neutrophils 87.1 % (42.0-75.0); Hemoglobin 8.3 g/dL (14.0-18.0); Mean Corpuscular HGB CONC 31.5 g/dL (32.0-36.0); Mean Corpuscular Hemoglobin 27.6 pg (27.0-31.0); Mean Corpuscular Volume 87.5 fL (78.0-98.0); Platelet Count 212 thou/uL (130-400); RBC Distribution Width 14.4 % (11.5-14.5); Red Blood Cell (RBC) Count 3.01 mill/uL (4.70-6.10); White Blood Cell (WBC) Count 13.8 thou/uL (4.8-10.8)
[2019-02-22] MEDS: Levothyroxine Sodium 100 MCG TAB PO SCH (05:38)
[2019-02-22 05:56] LABS: Anion Gap 14 mmol/L (10-20); BUN (Urea Nitrogen) 30 mg/dL (8.4-25.7); Calc. Creatinine Clearance 52 mL/min (70-130); Calcium 6.6 mg/dL (7.8-10.44); Carbon Dioxide 18 mmol/L (23-31); Chloride 113 mmol/L (98-107); Estimated GFR-MDRD 32; Glucose 115 mg/dL (83-110); Potassium 3.8 mmol/L (3.5-5.1); Sodium 141 mmol/L (136-145)
--- NOTE | 2019-02-22 08:15 | PDOC.PN ---
- Subjective Encounter Start Date: 02/22/19 Encounter Start Time: 10:30 Subjective: Patient reports no more diarrhea this morning, just some gas -: dysuria improving, no abdominal pain, no fever/chills, ambulating -: well - Objective Resuscitation Status - Order Detail: 02/19/19 09:06 Resuscitation Status Routine Resuscitation Status: FULL: Full Resuscitation MAR Reviewed: Yes Vital Signs & Weight: Vital Signs (12 hours) Temp Pulse Resp BP Pulse Ox 02/22/19 04:00 98.6 F 71 16 117/62 95 Weight Weight 248 lb 3.2 oz I&O: 02/21/19 02/22/19 02/23/19 06:59 06:59 06:59 Intake Total 2730 3070 Output Total 1600 1980 Balance 1130 1090 Result Diagrams: 02/22/19 05:17 02/22/19 05:17 Additional Labs: Accuchecks 02/22/19 02/21/19 02/21/19 05:33 20:54 17:07 POC Glucose 116 H 255 H 131 H 02/21/19 10:54 POC Glucose 207 H Phys Exam - Physical Examination Constitutional: NAD HEENT: moist MMs Respiratory: no wheezing, no rales, no rhonchi, clear to auscultation bilateral Cardiovascular: RRR, no significant murmur Gastrointestinal: soft, non-tender, positive bowel sounds Neurological: non-focal, moves all 4 limbs Psychiatric: normal affect, A&O x 3 Dx/Plan (1) Sepsis Code(s): A41.9 - SEPSIS, UNSPECIFIED ORGANISM Status: Acute Comment: Secondary to UTI and obstructing nephrolithiasis. (2) Nephrolithiasis Status: Acute Comment: Patient is post-op right stent placement by Dr. Roth. Continue hydration. Manage pain with urination - Tylenol available. (3) Type 2 diabetes mellitus Status: Chronic Comment: Resume home insulin (4) Urinary tract infection Status: Acute Comment: Complicated by nephrolithiasis, on Zosyn since 02/19/19 , switched to Bactrim 02/22/19 (5) Bacteremia Code(s): R78.81 - BACTEREMIA Status: Acute Comment: E. coli, sensitive to Rocephin, Zosyn, and Bactrim, will eventually need to transition to oral antibiotics, appreciate Dr. Kyra parkerut (6) Thyroid cancer Status: Chronic Comment: s/p resection, on chemotherapy (7) Acute renal failure Status: Acute Comment: unknown baseline, stable, holding spironolactone (8) C. difficile diarrhea Code(s): A04.72 - ENTEROCOLITIS D/T CLOSTRIDIUM DIFFICILE, NOT SPCF RECUR Status: Acute Comment: Patient with multiple diarrheal stools yesterday, C. diff positive toxin and antigen and positive fecal leukocytes. Will start oral vancomycin. Probiotics. (9) Type 2 myocardial infarction Code(s): I21.A1 - MYOCARDIAL INFARCTION TYPE 2 Status: Acute Comment: troponin mildly positive during acute sepsis, improved, no cardiac symptoms - Plan cont current plan of care, continue antibiotics, DVT proph w/heparin Patient cleared for discharge by Dr. Sol and Dr. Cruz. 2 weeks of -: Bactrim DS BID. Ureteroscopy on March 05. Vancomycin QID while on -: Bactrim, then taper over 1 month after that. Florastor as well. * . - Discharge Day Encounter end time: 11:00
[2019-02-22] MEDS ORDERED: Sulfameth/Trimethoprim DS 800-160mg TAB PO SCH (09:00)
[2019-02-22] MEDS ORDERED: Vancomycin HCl 25 MG/ML Oral PO SCH (09:00)
[2019-02-22] MEDS: Aspirin 325 MG TAB PO SCH (09:02)
[2019-02-22] MEDS: Tamsulosin HCl 0.4 MG CAP PO SCH (09:02)
[2019-02-22] MEDS: [UNRECOGNIZED DRUG - OTHER] PO SCH ×2 (09:03)
[2019-02-22] MEDS: [UNRECOGNIZED DRUG - OTHER] PO SCH (09:03)
[2019-02-22] MEDS: Atorvastatin Calcium 40 MG TAB PO SCH (09:05)
[2019-02-22] MEDS: Heparin 5,000 UNITS/ML VIAL SC SCH (09:06)
[2019-02-22] MEDS: Fluticasone Propionate Nasal Spray 16 gm Bottle NASAL SCH (09:07)
[2019-02-22] MEDS: Docusate Sodium 100 MG/10 ML UDCUP PO SCH (09:20)
[2019-02-22] MEDS ORDERED: Saccharomyces boulardii 250 MG CAP PO SCH (10:30)
[2019-02-22 12:06] VITALS: BP 114/62; TEMP 98.1
[2019-02-22 12:12] LABS: Color Tan (.); Comment Comment: (.); Comment Note: (.); Stone Weight 16.4 mg (.); Uric Acid 100 % (.)
[2019-02-22] MEDS ORDERED: Communication Order-Pharmacy FS ONE (12:48)
[2019-02-22] MEDS ORDERED: Insulin Glargine 25 UNITS in Pre-Filled Syringe 1 EACH SC SCH (21:00)
--- NOTE | 2019-02-23 04:52 | DIS ---
DATE OF ADMISSION: 02/19/2019 DATE OF DISCHARGE: 02/22/2019 PRIMARY CARE PHYSICIAN: Dr. Stephanie Stevens in [place], [place]. PRIMARY ONCOLOGIST: [facility]. PRIMARY UROLOGIST: Marcelino Mccormick MD REASON FOR ADMISSION: Sepsis with urinary tract infection and nephrolithiasis. DIAGNOSES AT DISCHARGE: 1. Sepsis, resolved. 2. Bacteremia with Escherichia coli. 3. Urinary tract infection. 4. Nephrolithiasis status post right stent placement. 5. Diabetes mellitus, type 2. 6. Thyroid cancer, on chemotherapy. 7. Acute on possibly chronic renal failure, uncertain baseline. 8. Clostridium difficile diarrhea, improved. 9. Type 2 myocardial infarction. PROCEDURES: 1. CT of the abdomen and pelvis without contrast showing a 4 x 3 x 3 mm calcification at the right UV junction with no right hydroureteronephrosis. 2. Cystoscopy with right retrograde IVP, right stent placement, and removal of bladder stone. 3. Echocardiogram showing ejection fraction of 50% to 55%, and no vegetations noted on the cardiac valves. CONSULTATIONS: 1. Urology, Dr. Sol. 2. Infectious Disease, Dr. Cruz. PERTINENT LABORATORY: Urine and blood cultures growing back E coli sensitive to ceftriaxone, Zosyn, and Bactrim, resistant to levofloxacin and ampicillin. SUMMARY OF HOSPITAL COURSE: This is a 73-year-old white male with a known history of thyroid cancer status post surgery in August of this year and on chemotherapy from [facility], also with diabetes, dyslipidemia, hypertension, and history of renal stones. He came in with fever, chills, nausea, weakness, and confusion. CT scan did show a right ureteral stone at the UV junction, but no hydronephrosis. He did have an elevated white blood cell count and had sepsis on presentation. His urinalysis also showed evidence for significant infection. The patient had elevated creatinine as well on presentation of 2.56, uncertain baseline. The patient was placed in the hospital. He was given IV hydration, he was IV antibiotics. Blood and urine cultures grew out E coli as above. Dr. Sol was consulted. He did a cystoscopy, right retrograde IVP. He put in a right stent. He also found a large bladder stone which he broke apart and removed. The patient did well during his hospitalization. His creatinine improved to 2.0 with IV hydration. He was eating well, having no nausea or vomiting. He did start to develop some diarrhea the day before discharge, about 4-5 episodes. Analysis of the diarrhea did show positive for C diff toxin and antigen as well as positive for leukocytes. Dr. Cruz was consulted during the patient's case. He did recommend starting vancomycin 4 times a day while the patient was on other antibiotics and then transitioning to a 1-month taper after that. The patient was also started on Florastor. The patient had no diarrhea on the last hospital day. He was ambulating well, eating well without any fever or other symptoms and he was cleared for discharge. The patient did have an elevation in his troponins on his initial presentation, went up from 0.2 to 0.3 and then back down to 0.2. He had no chest pain. This was possibly due to type 2 myocardial infarction from the sepsis and as well as due to his renal failure. He had an echocardiogram done with the above results showing no evidence for ejection fraction decrease or wall motion abnormalities. DISCHARGE MANAGEMENT: 1. Location: Discharged home. 2. Followup: a. Follow up with MD [place] as already scheduled this coming Tuesday on February 25 to recheck kidney function and potassium at that time. b. Follow up with his mechanical system technician in 2 to 3 weeks. c. Follow up with Dr. Sol as scheduled on March 05 for ureteroscopy. 3. Activity: As tolerated. 4. Diet: Diabetic diet. MEDICATIONS: 1. Decrease potassium to 10 mEq daily and stop spironolactone while the patient is on the Bactrim to prevent hyperkalemia. 2. Bactrim Double Strength one tablet twice a day for 14 days, 28 tablets dispensed. 3. Vancomycin 125 mg per 5 mL, the patient is to take 5 mL every 6 hours while on the Bactrim for the next 2 weeks. After that, he is to take 1 week of 3 times a day, 1 week of 2 times a day, 1 week of 1 time a day and then 1 week of every other day and then he can go off that. 4. Florastor 250 mg daily, 30 caps dispensed. 5. Azo-Standard 195 mg every 8 hours as needed for pain, 20 tabs dispensed. 6. Aspirin 325 mg daily. 7. Atorvastatin 40 mg daily. 8. Vitamin D3 50,000 units every 7 days. 9. Fentanyl patch every 3 days. 10. Rachel-D 24 Hour tablet as needed. 11. Fluticasone nasal spray two sprays in each nostril once a day. 12. Mucinex 1200 mg daily. 13. Hydromorphone 4 mL every 3 hours as needed for pain. 14. Lantus 25 units at night. 15. Humalog KwikPen by sliding scale. 16. Levothyroxine 200 mcg daily. 17. Lorazepam one tablet twice a day as needed. 18. Sertraline 50 mg daily. 19. Tamsulosin 0.4 mg daily. 20. Mektovi 3 tabs p.o. twice a day. 21. Docusate 50 mg daily. 22. Braftovi 6 caps p.o. daily. 23. Famotidine 20 mg twice a day. 24. MiraLAX 2 packs p.o. daily as needed. Arranging the details of this discharge took 35 minutes. Job ID: [id number]
[2019-02-23] MEDS ORDERED: Potassium Chloride 10 MEQ TAB PO SCH (08:00)
[2019-02-23] MEDS ORDERED: Saccharomyces boulardii 250 MG CAP PO SCH (09:00)
--- NOTE | 2019-02-23 12:08 | EKG ---
Test Reason : Blood Pressure : / mmHG Vent. Rate : 094 BPM Atrial Rate : 094 BPM P-R Int : 168 ms QRS Dur : 074 ms QT Int : 370 ms P-R-T Axes : 063 -07 046 degrees QTc Int : 462 ms Normal sinus rhythm Normal ECG Confirmed by NELSON COSME DO ([id number]), food expeditor FRIDA RAMOS ([id number]) on 02/23/2019 12:07:35 PM Referred By: Confirmed By:NELSON COSME DO
[2019-02-27] MEDS ORDERED: VITAMIN D3 50000 UNIT PO SCH (09:00)
== END 2019-02-22 16:00 | disposition home or self-care (01) | DRG 853 ==
LOC: ERS 00:53 → ERHOLD 04:20 → 2SE 18:56
PROVIDERS: ADMIT Hospitalist; ATTEND Hospitalist
PROC: 0T768DZ Dilation of Right Ureter with Intraluminal Device, Via Natural or Artificial Opening Endoscopic (ICD-10-PCS; principal; 2019-02-19)
PROC: 0TCB8ZZ Extirpation of Matter from Bladder, Via Natural or Artificial Opening Endoscopic (ICD-10-PCS; 2019-02-19)
PROC: BT1D1ZZ Fluoroscopy of Right Kidney, Ureter and Bladder using Low Osmolar Contrast (ICD-10-PCS; 2019-02-19)
DX: A41.51 Sepsis due to Escherichia coli [E. coli] (principal); I21.A1 Myocardial infarction type 2; G93.41 Metabolic encephalopathy; N39.0 Urinary tract infection, site not specified; N20.2 Calculus of kidney with calculus of ureter; N17.9 Acute kidney failure, unspecified; A04.72 Enterocolitis due to Clostridium difficile, not specified as recurrent; C73 Malignant neoplasm of thyroid gland; E89.0 Postprocedural hypothyroidism; E11.9 Type 2 diabetes mellitus without complications; Z96.652 Presence of left artificial knee joint; E78.5 Hyperlipidemia, unspecified; N40.0 Benign prostatic hyperplasia without lower urinary tract symptoms; D89.9 Disorder involving the immune mechanism, unspecified; Z98.42 Cataract extraction status, left eye; Z98.41 Cataract extraction status, right eye; Z87.440 Personal history of urinary (tract) infections; Z90.49 Acquired absence of other specified parts of digestive tract; Z87.442 Personal history of urinary calculi; Z86.73 Personal history of transient ischemic attack (TIA), and cerebral infarction without residual deficits; Z98.890 Other specified postprocedural states; Z79.2 Long term (current) use of antibiotics; Z79.899 Other long term (current) drug therapy
CPT/HCPCS: 36415; 36416; 71045; 74176; 74420; 80048; 80053; 81003; 81015; 82365; 82553; 83605; 83630; 84484; 85025; 87040; 87077; 87086; 87149; 87186; 87324; 87449; 88300; 93005; 93306; 94660; 96361; 96365; 96367; C1758; C1769; J0696; J1644; J1815; J2001; J2405; J2543; J2704; J3010; J3370; J3490; S0028

== ENCOUNTER 2019-03-05 06:04 | Day surgery (SDC) | payer MEDICARE ==
[2019-03-02 09:41] VITALS: BMI 34.2
[2019-03-05] MEDS ORDERED: Iothalamate Meglumine 60% 50 ML VIAL FS ONE (06:53)
[2019-03-05] MEDS ORDERED: Fentanyl 100 MCG/2 ML VIAL ONE (06:58)
[2019-03-05] MEDS ORDERED: cefTRIAXone\\ROCEPHIN 2 GM VIAL ONE (07:25)
[2019-03-05] MEDS ORDERED: Sodium Chloride 0.9% 100 ML ONE (07:25)
[2019-03-05] MEDS ORDERED: PROPOFOL 200 MG/20 ML VIAL ONE (11:43)
--- NOTE | 2019-03-05 12:49 | OP ---
DATE OF PROCEDURE: 03/05/2019 PREOPERATIVE DIAGNOSES: Right ureteral stone, right ureteral stent. POSTOPERATIVE DIAGNOSES: Right ureteral stone, right ureteral stent. PROCEDURES PERFORMED: Cysto, removal of right stent, right retrograde, and right rigid ureteroscopy. ANESTHESIA: General. ESTIMATED BLOOD LOSS: None. DRAINS: None. SPECIMENS REMOVED: Old stent was removed. INDICATIONS FOR SURGERY: This is an elderly white male in rather poor health with a number of medical conditions. He came in a couple of weeks ago, septic with an obstructing right ureteral stone. He grew out an E coli, had some resistance to quinolones. This was both in his blood, in his urine. I replaced the stent emergently on him at that visit for small distal right ureteral stone. He is still on oral Bactrim. He also had some C difficile, so he is on some oral vancomycin. He has been not having any fevers or chills at home. He is coming in now for removal of stent and retrograde study and probable ureteroscopy and possible laser lithotripsy. DESCRIPTION OF PROCEDURE: Obtained written and verbal consent from the patient, he was taken to the operating suite. He was placed in the supine position on the treatment table. IV was started after some difficulty because of poor peripheral IV access. He then received some Rocephin. He was given a general anesthetic and oral obturator intubation, placed in the dorsal lithotomy position. He was sterilely prepped and draped. The C-arm was placed over him for fluoroscopic guidance. We placed 2% Xylocaine jelly per urethra for some topical anesthesia. Cystoscopy was performed with a 22-Romanian sheath. This was well lubricated and passed under direct vision through the male urethra into the urinary bladder with aid of a 30-degree lens and the video camera and monitor. The bladder was filled and emptied. There were some small stone fragments on the floor of the bladder. A couple of weeks ago, he had, had a bladder stone that we crushed and removed most of and some of these little pieces could be from that, possibly they could even represent a passed ureteral stone. The distal end of the double-J stent was grasped and brought out through the urethral meatus. A guidewire was fed up. This went up to about mid ureter. It would not go past it. At this point, a Blissfield catheter was flushed with contrast placed in the right ureteral orifice about a centimeter and contrast was injected in a retrograde manner. There was a little bit of dilatation of the right distal ureter. I did not see any obvious filling defects. There was a slightly tortuous right ureter. An angle-tipped Glidewire was then passed through the Blissfield catheter up into the renal pelvis, straightening out the ureter. The Blissfield catheter was placed up into the renal pelvis. The angled Glidewire was removed and then the green guidewire was placed up through the Blissfield catheter and then the Blissfield catheter was removed leaving guidewire in place. The bladder was drained. The instruments were removed and a small caliber graduated rigid ureteroscope was brought and placed with direct vision with aid of a video camera and monitor through the male urethra into the bladder and up the right ureter. We slowly went up the entire ureter up to the renal pelvis and we saw no evidence of any stones in the ureter on the way in or the way out. At this point, the guidewire was removed and the bladder was drained. The instruments were removed. The patient was taken out of the dorsal lithotomy position, awakened, then extubated, and taken by rajat to the recovery room. Job ID: [id number]
== END 2019-03-05 10:00 | disposition home or self-care (01) ==
LOC: SDC 06:04
PROVIDERS: ATTEND Urology
PROC: 0TJ58ZZ Inspection of Kidney, Via Natural or Artificial Opening Endoscopic (ICD-10-PCS; principal; 2019-03-05)
DX: N21.0 Calculus in bladder (principal); N13.8 Other obstructive and reflux uropathy; N28.82 Megaloureter; I10 Essential (primary) hypertension; E11.9 Type 2 diabetes mellitus without complications; Z91.048 Other nonmedicinal substance allergy status; Z79.51 Long term (current) use of inhaled steroids; Z79.82 Long term (current) use of aspirin; Z79.4 Long term (current) use of insulin; Z79.899 Other long term (current) drug therapy
CPT/HCPCS: 36416; 76000; C1758; C1769; J0690; J0696; J2704; J3010; J3490